=== PATIENT | male | born 1960 | race Caucasian/White ===

== ENCOUNTER 2020-09-25 11:51 | Outpatient (CLI) | payer BC, SELFPAY ==
--- NOTE | ~2020-09-25 | US_ITS ---
EXAMINATION: US soft tissue groin LT EXAM DATE: 09/25/2020 12:28 INDICATION: Left inguinal palpable abnormality, clinical concern for hernia. TECHNIQUE: Multiple grayscale and Doppler images of the left groin symptomatic region were obtained ( by a technologist who performed the scan) and subsequently reviewed. FINDINGS: Scanning in the area of clinical concern demonstrates a lymph node measuring 1.4 x 1.0 cm with expect ed fatty hilum, likely reactive. There is no inguinal hernia identified. IMPRESSION: Left inguinal lymph node, borderline enlarged but probably reactive given large fatty hilum. Reviewed, dictated and finalized at location B. SSMENT DIRECTOR
== END 2020-09-25 11:52 | disposition home or self-care (01) ==
PROVIDERS: PCP Family Medicine; Visit Provider Nurse Practitioner Family
DX: R19.09 Other intra-abdominal and pelvic swelling, mass and lump (principal); K40.90 Unilateral inguinal hernia, without obstruction or gangrene, not specified as recurrent
CPT/HCPCS: 76882